=== PATIENT | male | born 1990 | race Caucasian/White ===

== ENCOUNTER 2017-05-04 23:12 | Emergency (ER) | payer SELFPAY ==
[2017-05-04 23:56] VITALS: TEMP 98.5; BMI 34.3
--- NOTE | 2017-05-05 00:12 | PDOC ---
History of Present Illness - History of Present Illness Initial Comments: 05/05/17 01:14 The patient is a 26 year old male, with a significant past medical history of kidney stones and UTI, who presents to the emergency department with hematuria, dysuria, and intermittent suprapubic cramping for two days. He reports the blood is visualized in the stream of the urination and reports bilateral, suprapubic cramping after urination (and only after urination).He states his suprapubic pain is not typical for his prior experiences with kidney stones in the past. He states he usually experiences pain higher with his kidney stones and has not had this pain. He states he is sexually active with men and uses condoms every single time, and he denies prior STIs. He denies chest pain, shortness of breath, headache and dizziness. He denies fever, chills, nausea, vomit, diarrhea and constipation. He denies frequency, urgency. Allergies: NKDA Past surgical history: none reported Social history: occasional tobacco use and alcohol consumption <Irasema Velásquez - Last Filed: 05/05/17 01:14> <Cedric Martino - Last Filed: 05/05/17 01:50> - General Chief Complaint: Hematuria Stated Complaint: BLOOD IN URINE Time Seen by Provider: 05/04/17 23:48 Past History <Irasema Velásquez - Last Filed: 05/05/17 01:14> - Past Medical History Kidney Stones: Yes - Suicide/Smoking/Psychosocial Hx Smoking Status: No Smoking History: Current some day smoker Number of Cigarettes Smoked Daily: 3 Information on smoking cessation initiated: No Hx Alcohol Use: Yes Drug/Substance Use Hx: No Substance Use Type: None <Cedric Martino - Last Filed: 05/05/17 01:50> - Past Medical History Allergies/Adverse Reactions: Allergies Allergy/AdvReac Type Severity Reaction Status Date / Time shellfish derived Allergy Itching Verified 07/31/16 13:53 Home Medications: Ambulatory Orders Nitrofurantoin Macrocrystal [Nitrofurantoin] 100 mg PO BID #10 capsule 05/05/17 Review of Systems - Review of Systems Able to Perform ROS?: Yes Comments:: 05/05/17 01:14 CONSTITUTIONAL: No reported: Fever, Chills, Diaphoresis, Generalized Weakness, Malaise, Loss of Appetite HEENT: No reported: Rhinorrhea, Nasal Congestion, Throat Pain, Throat Swelling, Difficulty Swallowing, Mouth Swelling, Ear Pain, Eye Pain, Visual Changes CARDIOVASCULAR: No reported: Chest Pain, Syncope, Palpitations, Irregular Heart Rate, Lightheadedness, Peripheral Edema RESPIRATORY: No reported: Cough, Shortness of Breath, SOB with Exertion, Orthopnea, Wheezing , Stridor, Hemoptysis GASTROINTESTINAL: (+) intermittent suprapubic pain bilaterally No reported: Abdominal Distension, Nausea, Vomiting, Diarrhea, Constipation, Melena, Hematochezia GENITOURINARY: (+)Dysuria and hematuria No reported: , Frequency, Urgency, Hesitancy, Flank Pain, Genital Pain MUSCULOSKELETAL: No reported: Myalgia, Arthralgia, Joint Swelling, Back pain, Neck Pain SKIN: No reported: Rash, Itching, Pallor HEMEATOLOGIC/IMMUNOLOGIC: No reported: Easy Bleeding, Easy Bruising, Lymphadenopathy, Frequent infections ENDOCRINE: No reported: Unexplained Weight Gain, Unexplained Weight Loss, Heat Intolerance , Cold Intolerance NEUROLOGIC: No reported: Headache, Focal Weakness, Paresthesias, Vertigo, Lightheadedness, Unsteady Gait, Seizure, Mental Status Changes, Incontinence PSYCHIATRIC: No reported: Anxiety, Depression <Irasema Velásquez - Last Filed: 05/05/17 01:14> *Physical Exam - Vital Signs Last Vital Signs Temp Pulse Resp BP Pulse Ox 98.5 F 75 18 153/91 98 05/04/17 23:54 05/04/17 23:54 05/04/17 23:54 05/04/17 23:54 05/04/17 23:54 - Physical Exam Comments: 05/05/17 01:14 GENERAL: The patient is awake, alert, and fully oriented, Nontoxic - in no acute distress. HEAD: Normocephalic, atraumatic. EYES: extraocular movements intact, sclera anicteric, conjunctiva clear. ENT: Normal voice, Moist mucous membranes. NECK: Normal range of motion, supple LUNGS: Breath sounds equal, clear to auscultation bilaterally. No wheezes, no rhonchi, no rales. HEART: Regular rate and rhythm, without murmur, rub or gallop. ABDOMEN: Soft, nontender, normoactive bowel sounds. No guarding, no rebound.No CVA tenderness EXTREMITIES: Normal range of motion, no edema. No clubbing or cyanosis. No cords, erythema, or tenderness. NEUROLOGICAL: No facial assymetry, Normal speech, PSYCH: Normal mood, normal affect. SKIN: Warm, Dry, normal turgor, : uncircumsized, no penile rash or discharge appreciated. <Irasema Velásquez - Last Filed: 05/05/17 01:14> - Vital Signs Last Vital Signs Temp Pulse Resp BP Pulse Ox 98.5 F 75 18 153/91 98 05/04/17 23:54 05/04/17 23:54 05/04/17 23:54 05/04/17 23:54 05/04/17 23:54 <Cedric Martino - Last Filed: 05/05/17 01:50> ED Treatment Course - ADDITIONAL ORDERS Additional order review: Laboratory Results 05/05/17 00:34 Urine Color Ltyellow Urine Appearance Slcloudy Urine pH 6.0 Urine Protein Negative Urine Glucose (UA) Negative Urine Ketones Negative Urine Blood 3+ H Urine Nitrite Negative Urine Bilirubin Negative Urine Urobilinogen 2.0 <Irasema Velásquez - Last Filed: 05/05/17 01:14> Medical Decision Making - Medical Decision Making 05/05/17 00:25 26y M no significant pmhx presents with hematuria and dysuria. The pt denies any fev/erchills. pt is homosexual but uses protection every single time. will r/o UTI, vs utheritis will send ua, gc chlamydia A portion of this note was documented by scribe services under my direction. I have reviewed the details of the note, within reason, and agree with the documentation with the following case summary and management plan written by me 05/05/17 01:47 ua suggestive of UTI will treat with macrobid cultures pending will dc wit hpmd fu return precautions were disucssed I discussed the physical exam findings, ancillary test results and final diagnoses with the patient. I answered all of the patient's questions. The patient was satisfied with the care received and felt comfortable with the discharge plan and treatment plan. The patient will call their primary care physician within 24 hours to arrange follow-up and will return to the Emergency Department with any new, persistent or worsening symptoms. <Cedric Martino - Last Filed: 05/05/17 01:50> *DC/Admit/Observation/Transfer - Attestations Scribe Attestion: 05/05/17 01:15 Documentation prepared by Irasema Velásquez, acting as medical driver for Cedric Martino MD, <Irasema Velásquez - Last Filed: 05/05/17 01:14> - Discharge Dispostion Admit: No <Cedric Martino - Last Filed: 05/05/17 01:50> Diagnosis at time of Disposition: Urinary tract infection Qualifiers: Urinary tract infection type: site unspecified Hematuria presence: with hematuria Qualified Code(s): N39.0 - Urinary tract infection, site not specified ; N39.0 - Urinary tract infection, site not specified; R31.9 - Hematuria, unspecified; R31.9 - Hematuria, unspecified - Discharge Dispostion Disposition: HOME Condition at time of disposition: Improved - Referrals Referrals: Aidan Posada MD [Staff Physician] - - Patient Instructions Printed Discharge Instructions: DI for Urinary Tract Infection (UTI) Additional Instructions: Return to the emergency department immediately with ANY new, persistent or worsening symptoms including any fevers, chills, nausea, vomiting, back pain or other concerns. Your cultures are pending, please call us in 2 days for results. You MUST call and follow up with your doctor in 3-4 days for further evaluation of your symptoms. Results were discussed with you. Please make sure your doctor reviews the results of your emergency evaluation. Print Language: CYMRO
[2017-05-05 00:41] LABS: URINE APPEARANCE SLCLOUDY; URINE BILIRUBIN NEGATIVE (NEGATIVE); URINE BLOOD 3+ (NEGATIVE); URINE COLOR LTYELLOW; URINE GLUCOSE (UA) NEGATIVE (NEGATIVE); URINE KETONE NEGATIVE (NEGATIVE); URINE LEUK ESTERASE NEGATIVE (NEGATIVE); URINE NITRITE NEGATIVE (NEGATIVE); URINE PROTEIN NEGATIVE (NEGATIVE)
[2017-05-05 01:14] LABS: URINE MUCUS RARE; URINE RBC 373 /hpf (0-3); URINE WBC 155 /hpf (3-5)
[2017-05-05 01:58] VITALS: BP 141/94; PULSE 62
== END 2017-05-05 01:58 | disposition home or self-care (01) ==
LOC: JER 23:12
DX: N39.0 Urinary tract infection, site not specified (principal); R31.9 Hematuria, unspecified; Z87.442 Personal history of urinary calculi
CPT/HCPCS: 36415; 81003; 81015; 87086; 87491; 87591; 99282-25

== ENCOUNTER 2017-05-12 19:20 | Emergency (ER) | payer SELFPAY ==
--- NOTE | 2017-05-12 19:28 | PDOC ---
History of Present Illness - General History Source: Patient Exam Limitations: No Limitations - History of Present Illness Initial Comments: 05/12/17 21:34 A portion of this note was documented by scribe services under my direction. I have reviewed the details of the note, within reason, and agree with the documentation. The case summary and management plan written by me. Assessment and plan: This is a 26-year-old male who comes in complaining of left flank pain. Patient has a history of kidney stones in the past. Patient also complaining of blood in his urine. Patient was here approximately 5 days ago diagnosis with UTI given antibiotics which she finished but still had persistent blood in his urine and symptoms. Patient had a workup here that included a CAT scan that was positive for a 4 x 3 mm stone in the distal left ureter without evidence of hydronephrosis or hydroureter. Patient was given prescriptions for Flomax, Percocet, Zofran and Naprosyn. Patient given referral to a urologist. Patient discharged home. <Minerva Shelley I - Last Filed: 05/12/17 21:34> - General History Source: Patient Exam Limitations: No Limitations - History of Present Illness Initial Comments: 05/12/17 19:57 The patient is a 26 year old male, with a significant past medical history of kidney stones, who presents to the ED with blood in the urine for approximately 1 week. The patient reports he began to experience lower abdominal pain about 1 week ago. Patient reports when he went to urinate he experienced dysuria and noted blood in his urine. He endorses urinary frequency, but denies any flank pain, urgency, or urinary incontinence. Patient reports presenting to the ER on 05/05/17, where he was diagnosed with a UTI, and started on antibiotics. As per records from 05/05/17, the urine culture that was sent on the patient, demonstrated no growth of any organisms. Patient reports finishing his abx course, but states his symptoms persists. He reports his pain is now localized to the left lower quadrant and describes it as a sharp sensation. He reports associated nausea, but denies any vomiting, diarrhea, or constipation. He denies any fever, chills, cough, headache, or dizziness. He denies any recent travel or sick contacts. PAST MEDICAL HISTORY: Kidney stones PAST SURGICAL HISTORY: No significant history FAMILY HISTORY: No pertinent history SOCIAL HISTORY: Pt lives with family and is employed. Occasional smoker. Social ETOH. No recreational drug use. MEDICATIONS: Reviewed ALLERGIES: As per nursing notes PCP: Dr. Posada General: No fevers or chills, no weakness, no weight loss HEENT: No change in vision. No sore throat,. No ear pain CardioVascular: No chest pain or shortness of breath Respiratory: No cough, or wheezing. Gastrointestinal: Yes abdominal pain, LLQ pain, nausea. No vomiting, diarrhea or constipation, No rectal bleeding Genitourinary: Yes dysuria, hematuria, frequency. No urgency or urinary incontinence Musculoskeletal: No joint or muscle pain or swelling Neurologic: No headache, vertigo, dizziness or loss of consciousness Psychiatric: No depression Skin: No rashes or easy bruising Endocrine: No increased thirst or abnormal weight change Allergic: No skin or latex allergy All other systems reviewed and normal General: Well-nourished well-developed individual, no acute distress HEENT: Throat: Normal, tonsils normal, no erythema or exudate Neck: Supple, no meningeal signs, no lymphadenopathy Eyes: Pupils equal reactive and round, extraocular motion intact Abdomen: Tenderness to the LLQ, but no suprapubic tenderness. Soft, nondistended , normal bowel sounds Back/Flank: No CVA tenderness. Tenderness to palpation on the left flank Extremities: Warm, dry, no cyanosis, clubbing, or edema Skin: No rashes Neuro: Alert and oriented x3, nonfocal exam, grossly intact, normal gait Psych: Normal mood and affect <Mili Lares - Last Filed: 05/12/17 21:48> - General Chief Complaint: Hematuria Stated Complaint: BLOOD IN URINE, LEFT FLANK PAIN Time Seen by Provider: 05/12/17 19:28 Past History - Past Medical History Kidney Stones: Yes - Suicide/Smoking/Psychosocial Hx Smoking Status: No Smoking History: Current some day smoker Number of Cigarettes Smoked Daily: 3 Hx Alcohol Use: Yes Drug/Substance Use Hx: No Substance Use Type: None <Minerva Shelley I - Last Filed: 05/12/17 21:34> <Mili Lares - Last Filed: 05/12/17 21:48> - Past Medical History Allergies/Adverse Reactions: Allergies Allergy/AdvReac Type Severity Reaction Status Date / Time shellfish derived Allergy Itching Verified 07/31/16 13:53 Home Medications: Ambulatory Orders Nitrofurantoin Macrocrystal [Nitrofurantoin] 100 mg PO BID #10 capsule 05/05/17 Naproxen [Naprosyn -] 250 mg PO BID PRN #30 tablet 05/12/17 Ondansetron [Zofran Odt -] 4 mg SL TID PRN #12 od.tablet 05/12/17 Oxycodone HCl/Acetaminophen [Percocet 5-325 mg Tablet] 1 - 2 tab PO Q4H PRN #12 tablet MDD 8 05/12/17 Tamsulosin HCl [Flomax] 0.4 mg PO DAILY #30 cap.er.24h 05/12/17 *Physical Exam - Vital Signs Last Vital Signs Temp Pulse Resp BP Pulse Ox 98.7 F 62 15 164/90 97 05/12/17 19:26 05/12/17 19:26 05/12/17 19:26 05/12/17 19:26 05/12/17 19:26 <Mili Lares - Last Filed: 05/12/17 21:48> ED Treatment Course - LABORATORY CBC & Chemistry Diagram: 05/12/17 19:55 05/12/17 19:55 <Minerva Shelley I - Last Filed: 05/12/17 21:34> - LABORATORY CBC & Chemistry Diagram: 05/12/17 19:55 05/12/17 19:55 - ADDITIONAL ORDERS Additional order review: Laboratory Results 05/12/17 19:35 Urine Color Yellow Urine Appearance Clear Urine pH 6.0 Ur Specific [place] 1.025 Urine Protein Trace Urine Glucose (UA) Negative Urine Ketones Negative Urine Blood Trace-intact H Urine Nitrite Negative Urine Bilirubin Negative Urine Urobilinogen 2.0 Ur Leukocyte Esterase Negative - RADIOLOGY Radiology Studies Ordered: 05/12/17 21:47 EXAM: CT Abdomen and Pelvis INTERPRETED BY: Dr. Emery REVIEWED BY: Dr. Gamino IMPRESSION: A couple of tiny nonobstructing right renal stones with the largest measuring 5 mm. A few nonobstructing left renal stones with the largest again seen in its lower pole measuring approximately 8 mm. 4 x 3 mm stone again seen in the distal left ureter on axial image #115 without evidence of left renal hydronephrosis or proximal hydroureter. No urinary bladder stone is identified. A few scattered diverticula in the colon without gross evidence of acute diverticulitis. <Mili Lares - Last Filed: 05/12/17 21:48> *DC/Admit/Observation/Transfer - Discharge Dispostion Admit: No <Minerva Shelley I - Last Filed: 05/12/17 21:34> - Attestations Scribe Attestion: 05/12/17 19:57 Documentation prepared by Mili Lares, acting as medical certification specialist for Minerva Shelley MD. <Jaci Laresmaite - Last Filed: 05/12/17 21:48> Diagnosis at time of Disposition: Renal colic on left side - Discharge Dispostion Condition at time of disposition: Good - Prescriptions Prescriptions: Tamsulosin HCl [Flomax] 0.4 mg PO DAILY #30 cap.er.24h Naproxen [Naprosyn -] 250 mg PO BID PRN #30 tablet PRN Reason: Pain Oxycodone HCl/Acetaminophen [Percocet 5-325 mg Tablet] 1 - 2 tab PO Q4H PRN #12 tablet MDD 8 PRN Reason: Pain Ondansetron [Zofran Odt -] 4 mg SL TID PRN #12 od.tablet PRN Reason: Nausea - Patient Instructions Printed Discharge Instructions: DI for Kidney Stones Additional Instructions: For pain you can take Naprosyn 1 tablet as often as 3 times a day if needed taken with food don't take on an empty stomach. If he needs something stronger you can take Percocet one tablet as often as every 4-6 hours if needed the Percocet will make you drowsy so if you take it do not drive or do anything that requires your concentration. For nausea take Zofran 1 tablet as often as 3 times a day. 4 to keep your urine flowing take Flomax 1 tablet a day. Follow-up with your urologist call him in the morning to make an appointment for this week if possible Return to the emergency department immediately with ANY new, persistent or worsening symptoms. Continue any medications as previously prescribed by your physician. You should follow up with your primary doctor as soon as possible regarding today's emergency department visit. . Please make sure your doctor reviews the results of your emergency evaluation. Thank you for coming to the Emergency Department today for your care. It was a pleasure to see you today. Please note that your evaluation is INCOMPLETE until you follow-up with your doctor. .
[2017-05-12] MEDS ORDERED: KETOROLAC TROMETHAMINE 30 MG/1 ML VIAL IVPUSH ONE (19:32)
[2017-05-12] MEDS ORDERED: SODIUM CHLORIDE 1,000 ML IV ONE (19:32)
[2017-05-12 19:40] VITALS: BP 164/90; PULSE 62; TEMP 98.7; BMI 34.2
[2017-05-12 19:52] LABS: URINE APPEARANCE Clear; URINE BILIRUBIN Negative (NEGATIVE); URINE GLUCOSE (UA) Negative (NEGATIVE); URINE KETONE Negative (NEGATIVE); URINE LEUK ESTERASE Negative (NEGATIVE); URINE NITRITE Negative (NEGATIVE); URINE PROTEIN Trace (NEGATIVE)
[2017-05-12 19:53] LABS: URINE BLOOD Trace-intact (NEGATIVE)
[2017-05-12 19:54] LABS: URINE COLOR YELLOW
[2017-05-12 20:12] LABS: URINE BACTERIA FEW /hpf (NEGATIVE); URINE WBC 0-2 (3-5)
[2017-05-12 20:13] LABS: BASOPHIL 4.3 % (0-2.0); EOSINOPHIL 1.5 % (0-4.5); MCH 30.7 pg (25.7-33.7); MCHC 34.8 g/dl (32.0-35.9); MEAN CELL VOLUME 88.2 fl (80-96); MEAN PLT VOLUME 8.5 fl (7.5-11.1); NEUTROPHILS 34.5 % (42.8-82.8); PLATELET COUNT 302 K/MM3 (134-434); RDW 11.8 % (11.9-15.9); WHITE BLOOD COUNT 8.9 K/mm3 (4.0-10.8)
[2017-05-12 20:21] LABS: ALBUMIN 4.4 g/dl (3.5-5.0); ALK PHOS 82 U/L (32-92); ANION GAP 6 (8-16); BILIRUBIN,TOTAL 0.7 mg/dl (0.2-1.0); CALCIUM 9.8 mg/dl (8.4-10.2); CO2 25 mmol/L (22-28); CREATININE 0.7 mg/dl (0.6-1.3); GLUCOSE,RANDOM 85 mg/dl (74-106); SGOT/AST 32 U/L (10-42); SGPT/ALT 50 U/L (10-40); TOT PROT 7.8 g/dl (6.4-8.3)
== END 2017-05-12 21:58 | disposition home or self-care (01) ==
LOC: FER 19:20
PROC: 3E0337Z Introduction of Electrolytic and Water Balance Substance into Peripheral Vein, Percutaneous Approach (ICD-10-PCS; principal; 2017-05-12)
DX: N23 Unspecified renal colic (principal); F17.210 Nicotine dependence, cigarettes, uncomplicated
CPT/HCPCS: 36415; 74176-TC; 80053; 81003; 81015; 85025; 99282-25

== ENCOUNTER 2017-11-24 19:00 | Emergency (ER) | payer OTHER ==
[2017-11-24 19:48] LABS: URINE APPEARANCE Clear; URINE BILIRUBIN 1+ (NEGATIVE); URINE GLUCOSE (UA) Negative (NEGATIVE); URINE KETONE Negative (NEGATIVE); URINE LEUK ESTERASE Negative (NEGATIVE); URINE NITRITE Negative (NEGATIVE); URINE UROBILINOGEN 0.2 (0.2-1.0)
[2017-11-24 19:50] LABS: URINE BLOOD 3+ (NEGATIVE); URINE COLOR YELLOW; URINE PROTEIN 1+ (NEGATIVE)
[2017-11-24 19:58] VITALS: BP 133/87; PULSE 98; TEMP 98.8; BMI 31.8
--- NOTE | 2017-11-24 20:09 | PDOC ---
History of Present Illness - General History Source: Patient Exam Limitations: No Limitations - History of Present Illness Initial Comments: 11/24/17 21:10 The patient is a 27 year old male with a significant PMH of kidney stones(last year) and UTI who presents to the emergency department with a sore throat and hematuria. The patient states that his sore throat symptoms began 2 days and, his hematuria began this morning. The patient reports that he recently had sick contact with his nephew who lives with him and was diagnosed with strep throat 2 days ago. He reports that he has had some painful swallowing. The patient reports that his hematuria has been intermittent since 3am this morning. He reports associated abdominal pain for a few hours. He also reports associated diarrhea and mild dysuria. He denies taking any pain relief medication but reports that he has no pain currently. The patient denies any urinary frequency or urgency. The patient denies chest pain, shortness of breath , headache and dizziness.Denies fever, chills,vomiting, and constipation. The patient denies any other complaints. <Cody Lay - Last Filed: 11/24/17 22:09> <Alannah Preciado - Last Filed: 11/26/17 23:59> - General Chief Complaint: Hematuria Stated Complaint: SORE THROAT & BLOOD IN URINE Time Seen by Provider: 11/24/17 19:38 Past History <Cody Lay - Last Filed: 11/24/17 22:09> - Past Medical History COPD: No Kidney Stones: Yes - Immunization History Immunization Up to Date: Yes - Suicide/Smoking/Psychosocial Hx Smoking Status: No Smoking History: Former smoker Have you smoked in the past 12 months: Yes Number of Cigarettes Smoked Daily: 3 If you are a former smoker, when did you quit?: 2017 Information on smoking cessation initiated: No 'Breaking Loose' booklet given: 05/04/17 Hx Alcohol Use: Yes (ONLY OCCASIONALLY) Drug/Substance Use Hx: No Substance Use Type: None <Alannah Preciado - Last Filed: 11/26/17 23:59> - Past Medical History Allergies/Adverse Reactions: Allergies Allergy/AdvReac Type Severity Reaction Status Date / Time shellfish derived Allergy Itching Verified 07/31/16 13:53 Home Medications: Ambulatory Orders NK [No Known Home Medication] 11/24/17 Review of Systems - Review of Systems Able to Perform ROS?: Yes Comments:: 11/24/17 21:10 GENERAL/CONSTITUTIONAL: No fever or chills. No weakness. HEAD, EYES, EARS, NOSE AND THROAT: (+)sore throat. No change in vision. No ear pain or discharge. CARDIOVASCULAR: No chest pain or shortness of breath. RESPIRATORY: No cough, wheezing, or hemoptysis. GASTROINTESTINAL: No nausea, vomiting, diarrhea or constipation. GENITOURINARY: (+)dysuria, hematuria. No frequency, or change in urination. MUSCULOSKELETAL: No joint or muscle swelling or pain. No neck or back pain. SKIN: No rash NEUROLOGIC: No headache, vertigo, loss of consciousness, or change in strength/ sensation. ENDOCRINE: No increased thirst. No abnormal weight change. HEMATOLOGIC/LYMPHATIC: No anemia, easy bleeding, or history of blood clots. ALLERGIC/IMMUNOLOGIC: No hives or skin allergy. <Cody Lay - Last Filed: 11/24/17 22:09> *Physical Exam - Vital Signs Last Vital Signs Temp Pulse Resp BP Pulse Ox 98.8 F 98 H 16 133/87 98 11/24/17 19:33 11/24/17 19:33 11/24/17 19:33 11/24/17 19:33 11/24/17 19:33 - Physical Exam Comments: 11/24/17 21:12 GENERAL: Awake, alert, and fully oriented, in no acute distress HEAD: No signs of trauma EYES: PERRLA, EOMI, sclera anicteric, conjunctiva clear ENT: (+) 1+ moderate erythema of pharynx. 1+ bilateral tonsillar edema without exudates. Auricles normal inspection, hearing grossly normal, nares patent, oropharynx clear without exudates. Moist mucosa. No lymphadenopathy. NECK: Normal ROM, supple, no lymphadenopathy, JVD, or masses LUNGS: Breath sounds equal, clear to auscultation bilaterally. No wheezes, and no crackles HEART: Regular rate and rhythm, normal S1 and S2, no murmurs, rubs or gallops ABDOMEN: Soft, nontender, normoactive bowel sounds. No guarding, no rebound. No masses EXTREMITIES: Normal range of motion, no edema. No clubbing or cyanosis. No cords, erythema, or tenderness NEUROLOGICAL: Cranial nerves II through XII grossly intact. Normal speech, normal gait SKIN: Warm, Dry, normal turgor, no rashes or lesions noted. <Cody Lay - Last Filed: 11/24/17 22:09> - Vital Signs Last Vital Signs Temp Pulse Resp BP Pulse Ox 98.8 F 98 H 16 133/87 98 11/24/17 19:33 11/24/17 19:33 11/24/17 19:33 11/24/17 19:33 11/24/17 19:33 <Alannah Preciado - Last Filed: 11/26/17 23:59> ED Treatment Course - ADDITIONAL ORDERS Additional order review: Laboratory Results 11/24/17 19:40 Urine Color Yellow Urine Appearance Clear Urine pH 5.0 Ur Specific [place] 1.025 Urine Protein 1+ H Urine Glucose (UA) Negative Urine Ketones Negative Urine Blood 3+ H Urine Nitrite Negative Urine Bilirubin 1+ H Urine Urobilinogen 0.2 Ur Leukocyte Esterase Negative Urine RBC >100 Urine WBC 10-20 Urine Bacteria Few 11/24/17 20:16 Group A Strep Rapid Antigen - Final Throat NEGATIVE FOR THE ANTIGEN OF BETA HEMOLYTIC STREP GROUP A <Cody Lay - Last Filed: 11/24/17 22:09> - ADDITIONAL ORDERS Additional order review: Laboratory Results 11/24/17 19:40 Urine Color Yellow Urine Appearance Clear Urine pH 5.0 Ur Specific [place] 1.025 Urine Protein 1+ H Urine Glucose (UA) Negative Urine Ketones Negative Urine Blood 3+ H Urine Nitrite Negative Urine Bilirubin 1+ H Urine Urobilinogen 0.2 Ur Leukocyte Esterase Negative <Alannah Preciado - Last Filed: 11/26/17 23:59> Progress Note - Progress Note Progress Note: Documentation has been prepared under my direction and personally reviewed by me in its entirety. I attest that this documented accurately reflects all work, treatment, procedures and medical decision making performed by me. <Alannah Preciado - Last Filed: 11/26/17 23:59> Medical Decision Making - Medical Decision Making As noted above, this 27-year-old man with a history of kidney stones presents with 2 complaints: Recent exposure to case of strep pharyngitis with current sore throat and left lower quadrant/left pelvic pain. The patient has had intermittent hematuria today without dysuria or urinary frequency. Exam as noted. Quick strep negative. Because of the patient's history of kidney stones and microscopic hematuria, renal stone protocol CT performed. This revealed small ( 1-2 mm) distal ureter/UVJ stone without significant hydroureter or hydronephrosis. Patient will be discharged with instructions to drink plenty of water. He should follow-up with the urologist (since he has not had any recent neurology follow-up). He should return to the emergency room if he has persistent, severe flank/lower abdominal/pelvic pain or if persisting gross hematuria/ dysuria occurs. Also, the patient has progressive severe throat pain, he should return to the emergency room. <Alannah Preciado - Last Filed: 11/26/17 23:59> *DC/Admit/Observation/Transfer - Attestations Scribe Attestion: 11/24/17 21:13 Documentation prepared by Cody Lay, acting as medical reviewer for Alannah Preciado MD. <Cody Lay - Last Filed: 11/24/17 22:09> <Alannah Preciado - Last Filed: 11/26/17 23:59> Diagnosis at time of Disposition: Renal colic Hematuria Qualifiers: Hematuria type: unspecified type Qualified Code(s): R31.9 - Hematuria, unspecified Pharyngitis Qualifiers: Pharyngitis/tonsillitis etiology: unspecified etiology Qualified Code(s): J02.9 - Acute pharyngitis, unspecified - Discharge Dispostion Disposition: HOME Condition at time of disposition: Stable - Referrals Referrals: Thor Steven MD [Staff Physician] - - Patient Instructions Printed Discharge Instructions: DI for Viral Pharyngitis, DI for Hematuria Additional Instructions: drink plenty of water Return if you have worsening pain, fever or persistent blood in urine Follow-up with urologist (Dr. Steven) within 3-4 days
[2017-11-24 20:47] LABS: URINE BACTERIA FEW /hpf (NEGATIVE); URINE RBC >100 /hpf (0-3)
--- NOTE | 2017-11-29 09:14 | PDOC ---
*Physical Exam - Vital Signs Last Vital Signs Temp Pulse Resp BP Pulse Ox 98.8 F 98 H 16 133/87 98 11/24/17 19:33 11/24/17 19:33 11/24/17 19:33 11/24/17 19:33 11/24/17 19:33 ED Treatment Course - ADDITIONAL ORDERS Additional order review: 11/24/17 20:16 Throat Culture - Final Throat Beta Hem Streptococcus Group C Group A Strep Rapid Antigen - Final NEGATIVE FOR THE ANTIGEN OF BETA HEMOLYTIC STREP GROUP A 11/24/17 22:44 Urine Culture - Final Urine - Urine Clean Catch NO GROWTH OBTAINED Medical Decision Making - Medical Decision Making 11/29/17 09:13 Received a positive throat culture: beta hem streptococcus group C. 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 I had left a voicemail requesting the patient to call back so that I could prescribe antibiotics. *DC/Admit/Observation/Transfer Diagnosis at time of Disposition: Renal colic Hematuria Qualifiers: Hematuria type: unspecified type Qualified Code(s): R31.9 - Hematuria, unspecified Pharyngitis Qualifiers: Pharyngitis/tonsillitis etiology: unspecified etiology Qualified Code(s): J02.9 - Acute pharyngitis, unspecified - Discharge Dispostion Disposition: HOME Condition at time of disposition: Stable - Referrals Referrals: Thor Steven MD [Staff Physician] - - Patient Instructions Printed Discharge Instructions: DI for Viral Pharyngitis, DI for Hematuria Additional Instructions: drink plenty of water Return if you have worsening pain, fever or persistent blood in urine Follow-up with urologist (Dr. Steven) within 3-4 days - Post Discharge Activity
--- NOTE | 2017-11-29 10:33 | PDOC ---
*Physical Exam - Vital Signs Last Vital Signs Temp Pulse Resp BP Pulse Ox 98.8 F 98 H 16 133/87 98 11/24/17 19:33 11/24/17 19:33 11/24/17 19:33 11/24/17 19:33 11/24/17 19:33 ED Treatment Course - ADDITIONAL ORDERS Additional order review: 11/24/17 20:16 Throat Culture - Final Throat Beta Hem Streptococcus Group C Group A Strep Rapid Antigen - Final NEGATIVE FOR THE ANTIGEN OF BETA HEMOLYTIC STREP GROUP A 11/24/17 22:44 Urine Culture - Final Urine - Urine Clean Catch NO GROWTH OBTAINED Medical Decision Making - Medical Decision Making 11/29/17 10:32 Received a phone call back from the patient. The patient still with sore throat. I explained the culture results to him. I wrote a prescription of amoxicillin. Pt reports that he will take it. *DC/Admit/Observation/Transfer Diagnosis at time of Disposition: Renal colic Hematuria Qualifiers: Hematuria type: unspecified type Qualified Code(s): R31.9 - Hematuria, unspecified Pharyngitis Qualifiers: Pharyngitis/tonsillitis etiology: unspecified etiology Qualified Code(s): J02.9 - Acute pharyngitis, unspecified - Discharge Dispostion Disposition: HOME Condition at time of disposition: Stable - Prescriptions Prescriptions: Amoxicillin - [Amoxicillin 500mg Capsule -] 500 mg PO TID #21 capsule - Referrals Referrals: Thor Steven MD [Staff Physician] - - Patient Instructions Printed Discharge Instructions: DI for Viral Pharyngitis, DI for Hematuria Additional Instructions: drink plenty of water Return if you have worsening pain, fever or persistent blood in urine Follow-up with urologist (Dr. Steven) within 3-4 days - Post Discharge Activity
== END 2017-11-24 23:09 | disposition home or self-care (01) ==
LOC: FER 19:00
DX: N20.0 Calculus of kidney (principal); R31.9 Hematuria, unspecified; J02.9 Acute pharyngitis, unspecified
CPT/HCPCS: 74176; 81003; 81015; 87070; 87077; 87086; 87430; 99282-25

== ENCOUNTER 2018-11-14 17:29 | Emergency (ER) | payer OTHER ==
[2018-11-14 17:39] VITALS: BP 115/71; PULSE 69; TEMP 98.4; BMI 33.7
--- NOTE | 2018-11-14 17:54 | PDOC ---
History of Present Illness - General Chief Complaint: Pain, Acute Stated Complaint: RT ARM PAIN Time Seen by Provider: 11/14/18 17:44 - History of Present Illness Initial Comments: 11/14/18 17:51 28-year-old male without comorbidities presents for evaluation of right wrist pain 5 days without any precipitating traumatic event. He denies systemic symptoms. Past History - Past Medical History Allergies/Adverse Reactions: Allergies Allergy/AdvReac Type Severity Reaction Status Date / Time shellfish derived Allergy Itching Verified 07/31/16 13:53 Home Medications: Ambulatory Orders NK [No Known Home Medication] 11/14/18 COPD: No Kidney Stones: Yes - Immunization History Immunization Up to Date: Yes - Suicide/Smoking/Psychosocial Hx Smoking Status: No Smoking History: Unknown if ever smoked Have you smoked in the past 12 months: No Number of Cigarettes Smoked Daily: 3 If you are a former smoker, when did you quit?: 2017 Information on smoking cessation initiated: No 'Breaking Loose' booklet given: 05/04/17 Hx Alcohol Use: No Drug/Substance Use Hx: No Substance Use Type: None Review of Systems - Review of Systems Constitutional: Yes: Fever Musculoskeletal: Yes: See HPI, Joint Pain *Physical Exam - Vital Signs Last Vital Signs Temp Pulse Resp BP Pulse Ox 98.4 F 69 18 115/71 97 11/14/18 17:35 11/14/18 17:35 11/14/18 17:35 11/14/18 17:35 11/14/18 17:35 - Physical Exam Comments: 11/14/18 17:51 Cervical spine skin color and temperature are normal. Range of motion is full and nonpainful. There is no tenderness. 5 out of 5 strength in bilateral upper extremities without gross sensorimotor deficits. Spurling maneuver negative bilaterally. Right elbow skin color and temperature are normal full range of motion no instability no tenderness. There is mild tenderness about the dorsum of the carpus. Pain is slightly increased with flexion of the wrist about the dorsum of the carpus as well as resisted wrist extension. No gross sensorimotor deficits. Neurovascularly intact. Medical Decision Making - Medical Decision Making 11/14/18 17:52 Extensor tendinitis right wrist. Splint anti-inflammatories follow-up with orthopedic. *DC/Admit/Observation/Transfer Diagnosis at time of Disposition: Tendonitis of wrist, right - Discharge Dispostion Disposition: HOME Condition at time of disposition: Stable Decision to Admit order: No - Referrals Referrals: Kishor Bhagat DO [Staff Physician] - - Patient Instructions Printed Discharge Instructions: Tendinopathy Additional Instructions: Please wear the wrist splint for comfort. Tylenol and Motrin as directed for pain. Return to the emergency room for worsening symptoms. Follow-up with orthopedic surgery in 1-2 days for further evaluation and treatment options. - Post Discharge Activity
== END 2018-11-14 17:55 | disposition home or self-care (01) ==
LOC: JERFT 17:29
PROC: 2W3CX1Z Immobilization of Right Lower Arm using Splint (ICD-10-PCS; principal; 2018-11-14)
DX: M77.8 Other enthesopathies, not elsewhere classified (principal)
CPT/HCPCS: 29125; 99281-25

== ENCOUNTER 2019-04-20 01:04 | Emergency (ER) | payer OTHER | END 2019-04-20 03:38 | disposition home or self-care (01) | LOC: FER 01:04 ==

== ENCOUNTER 2019-08-07 18:17 | Emergency (ER) | payer OTHER ==
[2019-08-07 18:28] VITALS: BP 156/103; PULSE 73; TEMP 98.3; BMI 36.8
[2019-08-07 19:13] LABS: EPITHELIAL CELLS RARE /hpf
--- NOTE | 2019-08-07 23:32 | PDOC ---
Documentation entered by Keren Sanchez SCRIBE, acting as scribe for Alannah Preciado MD. Alannah Preciado MD: This documentation has been prepared by the Laura link Adrianna, SCRIBE, under my direction and personally reviewed by me in its entirety. I confirm that the documentation accurately reflects all work, treatment, procedures, and medical decision making performed by me. History of Present Illness - General Chief Complaint: Hematuria Stated Complaint: HEMATURIA FOR 3 DAYS AFTER PASSING A KIDNEY STONE Time Seen by Provider: 08/07/19 19:10 - History of Present Illness Initial Comments: The patient is a 29 year old male, with a significant PMH of kidney stones, who presents to the ED for evaluation of hematuria for 3 days. Patient notes he gets kidney stones every 7 months, and notes last week he developed bilateral flank pain that was sales solutions representative of his prior kidney stones. 3 days ago, he notes he felt the stone traveling down, and endorses associated hematuria ( which is typical for him when he passes stones). He notes he passed the stone mid-day yesterday while urinating. After passing stones in the past, he typically no longer had blood in his urine. His urine had bright-red blood in it yesterday, which has transitioned into pink-tinged urine today. Patient endorses some intermittent flank pain up until yesterday, but denies anyg today. He presents to the ED as the hematuria has not stopped although the stone has been passed. He denies any penile discharge, fever, chills, nausea, vomit, or diarrhea. He is not currently sexually active. Allergies: NKA, NKDA Surgical history: None reported Social history: Lives with family. Social EtOH use. No tobacco or illicit drug use. Past History - Past Medical History Allergies/Adverse Reactions: Allergies Allergy/AdvReac Type Severity Reaction Status Date / Time No Known Allergies Allergy Verified 08/07/19 18:19 Home Medications: Ambulatory Orders NK [No Known Home Medication] 08/07/19 COPD: No Kidney Stones: Yes - Immunization History Immunization Up to Date: Yes - Psycho Social/Smoking Cessation Hx Smoking Status: No Smoking History: Never smoked Have you smoked in the past 12 months: No Number of Cigarettes Smoked Daily: 3 If you are a former smoker, when did you quit?: 2017 Information on smoking cessation initiated: No 'Breaking Loose' booklet given: 05/04/17 Hx Alcohol Use: Yes (SOCIAL) Drug/Substance Use Hx: No Substance Use Type: None Review of Systems - Review of Systems Comments:: GENERAL/CONSTITUTIONAL: No fever or chills. No weakness. HEAD, EYES, EARS, NOSE AND THROAT: No change in vision. No ear pain or discharge. No sore throat. CARDIOVASCULAR: No chest pain or shortness of breath. RESPIRATORY: No cough, wheezing, or hemoptysis. GASTROINTESTINAL: No nausea, vomiting, diarrhea or constipation. GENITOURINARY: +Hematuria. +Passed kidney stone. No dysuria, frequency, or change in urination. MUSCULOSKELETAL: +Intermittent bilateral flank pain.. No joint or muscle swelling or pain. No neck or back pain. SKIN: No rash NEUROLOGIC: No headache, vertigo, loss of consciousness, or change in strength/ sensation. ENDOCRINE: No increased thirst. No abnormal weight change. HEMATOLOGIC/LYMPHATIC: No anemia, easy bleeding, or history of blood clots. ALLERGIC/IMMUNOLOGIC: No hives or skin allergy. *Physical Exam - Vital Signs Last Vital Signs Temp Pulse Resp BP Pulse Ox 98.3 F 73 16 156/103 H 98 08/07/19 18:18 08/07/19 18:18 08/07/19 18:18 08/07/19 18:18 08/07/19 18:18 - Physical Exam GENERAL: Awake, alert, and fully oriented, in no acute distress HEAD: No signs of trauma EYES: PERRLA, EOMI, sclera anicteric, conjunctiva clear ENT: Auricles normal inspection, hearing grossly normal, nares patent. Moist mucosa NECK: Normal ROM, supple, no lymphadenopathy, JVD, or masses LUNGS: Breath sounds equal, clear to auscultation bilaterally. No wheezes, and no crackles HEART: Regular rate and rhythm, normal S1 and S2, no murmurs, rubs or gallops ABDOMEN: Soft, nontender, normoactive bowel sounds. No guarding, no rebound. No masses EXTREMITIES: Normal range of motion, no edema. No erythema or tenderness. DP/PT pulses 2+ and symmetric. Warm and well perfused. NEUROLOGICAL: Moves all extremities. Normal speech, normal gait SKIN: Warm, Dry, normal turgor, no rashes or lesions noted. ED Treatment Course - ADDITIONAL ORDERS Additional order review: Laboratory Results 08/07/19 18:52 Urine Color Yellow Urine Appearance Slightly Urine pH 7.0 Urine Protein Negative Urine Glucose (UA) Negative Urine Ketones Negative Urine Blood 3+ H Urine Nitrite Negative Urine Bilirubin Negative Urine Urobilinogen 1.0 Ur Leukocyte Esterase Negative Medical Decision Making - Medical Decision Making This 29-year-old man with a history of recurrent kidney stones presents with persistent hematuria after passage of kidney stone yesterday. Patient is concerned because his pain has resolved but he still has noticeable blood in his urine. He admits that while the urine was red yesterday, it has improved to being light pink today. He denies any symptoms of urinary tract infection. Exam as noted Urinalysis shows 8200 RBCs per high-power field; otherwise, urinalysis is normal without evidence of significant WBCs or bacteria. Urine sent for culture and sensitivity. It was explained to the patient that, because he has no recurrent pain, retained ureteral stone is unlikely. Also, without white blood cells or bacteria in his urine, there is less likelihood that urinary tract infection is present. Urine culture and sensitivity will test if there is a UTI present. Since the red coloration is decreasing in the last 24 hours, it is possible that the hematuria is present secondary to physical irritation of the passage of the stone and will likely continue to clear. Patient is encouraged to drink plenty fluids. He should return if he has recurrent pain or develops dysuria/ urinary frequency/fever. Meanwhile, the patient has not seen a urologist in over 10 years. He was given referral information for the urologist on-call , with whom he should arrange follow-up within the next week Discharge - Discharge Information Problems reviewed: Yes Clinical Impression/Diagnosis: Hematuria Qualifiers: Hematuria type: unspecified type Qualified Code(s): R31.9 - Hematuria, unspecified Condition: Stable Disposition: HOME - Follow up/Referral Referrals: Chirag Foley MD [Staff Physician] - - Patient Discharge Instructions Patient Printed Discharge Instructions: Blood in Urine Additional Instructions: drink plenty of water return to ER if you develop pain/fever/frequent urination we will contact you if culture is positive for infection followup with urologist(Dr Foley) within 3-4 days - Post Discharge Activity
== END 2019-08-07 19:42 | disposition home or self-care (01) ==
LOC: FER 18:17
DX: R31.9 Hematuria, unspecified (principal); Z87.442 Personal history of urinary calculi
CPT/HCPCS: 81003; 81015; 87086; 99282-25

== ENCOUNTER 2019-08-27 05:44 | Emergency (ER) | payer OTHER ==
--- NOTE | 2019-08-27 05:56 | PDOC ---
History of Present Illness - General Chief Complaint: Urinary Problem Stated Complaint: BLOOD IN URINE, PAIN Time Seen by Provider: 08/27/19 05:55 History Source: Patient Exam Limitations: No Limitations - History of Present Illness Initial Comments: Melvin Davila is a 29 yo obese mail w a hx of HTN and kidney stones who presents to the ER with pain while urinating after he recently passed a kidney stone. He states he passed a stone 3 days ago and he saw the stone come through his penis. Ever since the stone left it has hurt him very much to urinate and he thinks something inside his urethra might have torn. He states he has tried scheduling a Urologist appointment with his urologist Dr. Ezio Enrique but has thus far been unsuccessful at scheduling an appointment. He denies frequency, urgency, or hematuria. Denies fevers, chills, infections. Denies chest, abdomen, or back pain. Urologist: Dr. Enrique PSH: None reported Social Hx: Recreational drinker Allergies: NKA, NKDA Past History - Past Medical History Allergies/Adverse Reactions: Allergies Allergy/AdvReac Type Severity Reaction Status Date / Time No Known Allergies Allergy Verified 08/27/19 06:02 Home Medications: Ambulatory Orders NK [No Known Home Medication] 08/07/19 COPD: No Kidney Stones: Yes - Immunization History Immunization Up to Date: Yes - Psycho Social/Smoking Cessation Hx Smoking Status: No Smoking History: Never smoked Have you smoked in the past 12 months: No Number of Cigarettes Smoked Daily: 3 If you are a former smoker, when did you quit?: 2016 'Breaking Loose' booklet given: 05/04/17 Hx Alcohol Use: Yes (SOCIAL) Drug/Substance Use Hx: No Substance Use Type: None Review of Systems - Review of Systems Able to Perform ROS?: Yes Comments:: CONSTITUTIONAL: Absent: fever, no chills, no fatigue EYES: Absent: visual changes ENT: Absent: ear pain, no sore throat CARDIOVASCULAR: Absent: chest pain, no palpitations RESPIRATORY: Absent: cough, no SOB GI: Absent: abdominal pain, no nausea, no vomiting, no constipation, no diarrhea GENITOURINARY: Present: Dysuria Absent: no frequency, no hematuria MUSKULOSKELETAL: Absent: back pain, no arthralgia, no myalgia SKIN: Absent: rash NEURO: Absent: headache *Physical Exam - Physical Exam GENERAL: Well-appearing, well-nourished. No apparent distress. HEENT: Normocephalic, atraumatic. PERRL, EOM intact. CARDIOVASCULAR: Normal S1, S2. Regular rate and rhythm. PULMONARY: No evidence of respiratory distress. Lungs clear to auscultation bilaterally. No wheezing, rales or rhonchi. ABDOMEN: Soft, non-distended, non-tender. EXTREMITIES: Normal ROM in all four extremities. No gross deformities. SKIN: Warm, dry. No rash NEUROLOGICAL: No focal neurological deficits. Medical Decision Making - Medical Decision Making Melvin Davila is a 29 yo obese mail w a hx of HTN and kidney stones who presents to the ER with pain while urinating after he recently passed a kidney stone. He states he passed a stone 3 days ago and he saw the stone come through his penis. Ever since the stone left it has hurt him very much to urinate and he thinks something inside his urethra might have torn. He states he has tried scheduling a Urologist appointment with his urologist Dr. Ezio Enrique but has thus far been unsuccessful at scheduling an appointment. Vital Signs Temp Pulse Resp BP Pulse Ox 97.9 F 68 17 161/109 H 98 08/27/19 05:56 08/27/19 05:56 08/27/19 05:56 08/27/19 05:56 08/27/19 05:56 - Hypertensive DDx IBNLT: Urethral tear, renal colic, infected stone, UTI Plan: Ua/UC, uroloigist referral Urine: 3+ blood Re-assessment: Patient feels better after motrin Disposition: Home with Uro FU - Patient counselled on importance of scheduling an appointment with a PCP regarding his elevated blood pressure. patient counselled on danger of not taking care of his blood pressure right away. Patient states he will schedule an appointment with a PCP today. Discharge - Discharge Information Problems reviewed: Yes Clinical Impression/Diagnosis: Dysuria Hypertension Qualifiers: Hypertension type: unspecified Qualified Code(s): I10 - Essential (primary) hypertension Condition: Stable Disposition: HOME - Admission No - Follow up/Referral Referrals: Mc Jeter MD [Staff Physician] - Qamar Borjas MD [Staff Physician] - Ezio Enrique MD [Staff Physician] - [facility] [place] [Provider Group] - Patient Discharge Instructions Patient Printed Discharge Instructions: Recommendations to Help Prevent High Blood Pressure, High Blood Pressure Linked to Inflammation, High Blood Pressure (Hypertension) (Alternative Therapy), DI for Dysuria -- Child, DI for Dysuria - - Adult Additional Instructions: You came into the ER with burning when you pee. We believe you might have a urethral tear. We are giving you the numbers of 3 urologists to call and schedule an appointment with. Please schedule an appointment in the next 3 days. YOU MUST SCHEDULE AN APPOINTMENT AT THE [facility] TO GET YOUR HIGH BLOOD PRESSURE UNDER CONTROL. IF YOU DO NOT CONTROL YOUR BLOOD PRESSURE YOU CAN BECOME VERY SICK VERY FAST Come back to the ER immediately if you get a fever, have severe pain, or have any other new or worsening concerns. Thank you for coming to the [facility] ER. We hope you feel better soon! Print Language: [place] - Post Discharge Activity Work/Back to School Note: Back to Work
[2019-08-27] MEDS ORDERED: IBUPROFEN 600 MG TABLET (FP) PO ONE ×2 (06:05→06:18)
[2019-08-27 06:16] VITALS: BP 161/109; PULSE 68; TEMP 97.9; BMI 35.5
[2019-08-27 06:19] LABS: EPI CELLS 0.4 /HPF (0-5/HPF); HYALINE CASTS 0 /lpf (0-8); PH,URINE 6.5 (5.0-8.0); URINE APPEARANCE CLEAR; URINE BACTERIA 1.2 /hpf (NEGATIVE); URINE BILIRUBIN NEGATIVE (NEGATIVE); URINE COLOR YELLOW; URINE GLUCOSE (UA) NEGATIVE (NEGATIVE); URINE KETONE NEGATIVE (NEGATIVE); URINE LEUK ESTERASE NEGATIVE (NEGATIVE); URINE NITRITE NEGATIVE (NEGATIVE); URINE PROTEIN NEGATIVE (NEGATIVE); URINE RBC 214 /hpf (0-4); URINE WBC 1 /hpf (0-5)
--- NOTE | 2019-08-27 06:31 | PDOC ---
Attending Attestation - Resident Resident Name: Albaro Rocha - ED Attending Attestation I have performed the following: I have examined & evaluated the patient, The case was reviewed & discussed with the resident, I agree w/resident's findings & plan, Exceptions are as noted - HPI HPI: 09/09/19 20:34 See resident HPI - Physicial Exam PE: 09/09/19 20:34 Agree with documented exam - Medical Decision Making 09/09/19 20:34 29M hx of kidney stones states he observed the stone passing but he still has pain distally, endorses hematuria but no clots f/u ua +blood, no infection Pt urinating freely, no clots, hemodynamically stable with hypertension, tolerating po w/o issue, pain improved dc f/u urology
== END 2019-08-27 06:52 | disposition home or self-care (01) ==
LOC: JER 05:44
DX: R30.0 Dysuria (principal); I10 Essential (primary) hypertension; N20.0 Calculus of kidney
CPT/HCPCS: 81003; 87086; 99282-25

== ENCOUNTER 2019-08-29 19:00 | Emergency (ER) | payer OTHER ==
[2019-08-29 19:12] VITALS: PULSE 80; TEMP 98.4; BMI 35.5
[2019-08-29] MEDS ORDERED: LOSARTAN POTASSIUM 50 MG TABLET (FP) PO ONE (19:33)
[2019-08-29] MEDS ORDERED: ACETAMINOPHEN 500 MG TABLET (FP) PO ONE (19:33)
[2019-08-29] MEDS ORDERED: ACETAMINOPHEN 500 MG TABLET (FP) ONE (19:34)
--- NOTE | 2019-08-29 19:59 | PDOC ---
Documentation entered by Sena Villasenor SCRIBE, acting as scribe for Minerva Shelley MD. Minerva Shelley MD: This documentation has been prepared by the fariba, Sena Villasenor SCRIBE, under my direction and personally reviewed by me in its entirety. I confirm that the documentation accurately reflects all work, treatment, procedures, and medical decision making performed by me. History of Present Illness - General Chief Complaint: Blood Pressure Problem Stated Complaint: HIGH BLOOD PRESURE Time Seen by Provider: 08/29/19 19:07 History Source: Patient Exam Limitations: No Limitations - History of Present Illness Initial Comments: 08/29/19 20:23 Patient is a 29 year old male with a significant past medical history of HTN and kidney stones who presents to the ED for evaluation of high blood pressure. Patient states he was worried about his high blood pressure due to recently having a kidney stone. He also reports having associated chest tightness. He reports having gained a lot of weight over the past year and has not been able to keep his blood pressure under control. PAST MEDICAL HISTORY: HTN, Kidney stones. PAST SURGICAL HISTORY: no significant history FAMILY HISTORY: no pertinent history SOCIAL HISTORY: Pt lives with family and is employed. MEDICATIONS: reviewed ALLERGIES: As per nursing notes General: No fevers or chills, no weakness, no weight loss HEENT: No change in vision. No sore throat,. No ear pain CardioVascular: No chest pain or shortness of breath Respiratory:No cough, or wheezing. Gastrointestinal: no nausea, vomiting, diarrhea or constipation, No rectal bleeding Genitourinary: No dysuria, hematuria, or frequency Musculoskeletal: +chest tightness. No joint or muscle pain or swelling Neurologic: No headache, vertigo, dizziness or loss of consciousness Psychiatric: nor depression Skin: No rashes or easy bruising Endocrine: no increased thirst or abnormal weight change Allergic: no skin or latex allergy All other systems reviewed and normal General: Well-nourished well-developed individual, no acute distress HEENT: Throat: Normal, tonsils normal, no erythema or exudate Neck: Supple, no meningeal signs, no lymphadenopathy Eyes::Pupils equal reactive and round, extraocular motion intact Chest: Nontender to palpation Cardiac: S1-S2 normal, regular rate and rhythm, no murmurs rubs or gallops Respiratory: Lungs clear to auscultation bilateral Abdomen: Soft, nondistended, normal bowel sounds, nontender to palpation diffusely Extremities: Warm, dry, no cyanosis, clubbing, or edema Skin: No rashes Neuro: Alert and oriented x3, nonfocal exam, grossly intact, normal gait Psych: Normal mood and affect 08/29/19 20:30 Assessment and plan: This is a 29-year-old male who comes in complaining of some discomfort in his chest hypertension and a headache. Patient has hypertension times approximately 1 year since he gained some weight. Patient is not on any medication. Here in the emergency room his blood pressure was approximately 150 systolic. Patient was given some Tylenol for his headache a cardiogram was done that showed normal sinus rhythm with occasional PAC otherwise no acute ST-T wave changes and essentially normal EKG. Patient was started on losartan prescription was sent to his pharmacy was given a first dose here and patient does have a primary care doctor that he said he will follow-up with. Past History - Past Medical History Allergies/Adverse Reactions: Allergies Allergy/AdvReac Type Severity Reaction Status Date / Time No Known Allergies Allergy Verified 08/27/19 06:02 Home Medications: Ambulatory Orders Losartan Potassium 50 mg PO DAILY #30 tablet 08/29/19 COPD: No HTN: Yes Kidney Stones: Yes - Immunization History Immunization Up to Date: Yes - Psycho Social/Smoking Cessation Hx Smoking Status: No Smoking History: Never smoked Have you smoked in the past 12 months: No Number of Cigarettes Smoked Daily: 3 If you are a former smoker, when did you quit?: 2017 'Breaking Loose' booklet given: 05/04/17 Hx Alcohol Use: No Drug/Substance Use Hx: No Substance Use Type: None *Physical Exam - Vital Signs Last Vital Signs Temp Pulse Resp BP Pulse Ox 98.4 F 80 16 150/86 96 08/29/19 19:01 08/29/19 19:01 08/29/19 19:01 08/29/19 19:08/29/19 19:01 ED Treatment Course - Medications Given in the ED: ED Medications Discontinued Medications Generic Name Dose Route Start Last Admin Trade Name Freq PRN Reason Stop Dose Admin Acetaminophen 1,000 mg 08/29/19 19:33 08/29/19 19:35 Tylenol - PO 08/29/19 19:34 1,000 mg ONCE ONE Administration Losartan Potassium 50 mg 08/29/19 19:33 08/29/19 19:41 Cozaar - PO 08/29/19 19:34 50 mg ONCE ONE Administration Discharge - Discharge Information Problems reviewed: Yes Clinical Impression/Diagnosis: Essential hypertension Condition: Good Disposition: HOME - Admission No - Additional Discharge Information Prescriptions: Losartan Potassium 50 mg PO DAILY #30 tablet - Follow up/Referral - Patient Discharge Instructions Additional Instructions: Take losartan 1 tablet a day for your hypertension Tylenol or Motrin as needed for headache. Your cardiogram was not concerning for any acute problems it did have an occasional premature beat which is very common and not a concern. However it is important that you call your primary care doctor and follow-up with your primary care doctor. Return to the emergency department immediately with ANY new, persistent or worsening symptoms. Continue any medications as previously prescribed by your physician. You should follow up with your primary doctor as soon as possible regarding today's emergency department visit. . Please make sure your doctor reviews the results of your emergency evaluation. Thank you for coming to the Emergency Department today for your care. It was a pleasure to see you today. Please note that your evaluation is INCOMPLETE until you follow-up with your doctor. - Post Discharge Activity
[2019-08-29 20:03] VITALS: BP 155/105
--- NOTE | 2019-08-30 14:17 | EKG ---
Test Reason : Blood Pressure : / mmHG Vent. Rate : 062 BPM Atrial Rate : 062 BPM P-R Int : 138 ms QRS Dur : 104 ms QT Int : 392 ms P-R-T Axes : 033 058 060 degrees QTc Int : 397 ms SINUS RHYTHM WITH WITH MARKED SINUS ARRHYTHMIA WHEN COMPARED WITH ECG OF 16-APR-2013 01:28, NO SIGNIFICANT CHANGE WAS FOUND Confirmed by Dominga Mishra ([id number]) on 08/30/2019 2:16:42 PM Referred By: LEXI RENTERIA Confirmed By:Dominga Mishra
== END 2019-08-29 20:06 | disposition home or self-care (01) ==
LOC: FER 19:00
DX: I10 Essential (primary) hypertension (principal); N20.0 Calculus of kidney
CPT/HCPCS: 93005; 99282-25

== ENCOUNTER 2022-01-17 22:33 | Emergency (ER) | payer OTHER ==
[2022-01-17 22:40] VITALS: BMI 35.5
[2022-01-17] MEDS ORDERED: SODIUM CHLORIDE 1,000 ML IV ONE (22:56)
[2022-01-17] MEDS ORDERED: KETOROLAC TROMETHAMINE 30 MG/1 ML VIAL IVPUSH ONE (22:56)
[2022-01-17 22:59] VITALS: BP 144/70; PULSE 54; TEMP 98.9
[2022-01-17] MEDS ORDERED: KETOROLAC TROMETHAMINE 30 MG/1 ML VIAL ONE (22:59)
[2022-01-17 23:07] LABS: HEMATOCRIT 43.8 % (35.4-49); HEMOGLOBIN 15.6 G/dL (11.7-16.9); MCHC 35.5 g/dl (32.0-35.9); MEAN CELL VOLUME 87.1 fl (80-96); MEAN PLT VOLUME 7.2 fl (7.5-11.1); PLATELET COUNT 281.2 10^3/uL (134-434); RBC 5.03 10^6/uL (4.00-5.60); RDW 14.4 % (11.9-15.9); WHITE BLOOD COUNT 9.6 10^3/uL (4.0-10.8)
[2022-01-17 23:14] LABS: PLATELET ESTIMATE ADEQUATE
[2022-01-17 23:28] LABS: ALBUMIN 4.7 g/dl (3.4-5.0); BILIRUBIN,TOTAL 0.8 mg/dl (0.2-1); CALCIUM 9.8 mg/dl (8.5-10); CREATININE 0.8 mg/dl (0.55-1.3); TOT PROT 7.6 g/dl (6.4-8.2)
[2022-01-17] MEDS ORDERED: ONDANSETRON 4 MG/2 ML VIAL IVPUSH ONE (23:32)
[2022-01-17] MEDS ORDERED: ONDANSETRON 4 MG/2 ML VIAL ONE (23:35)
== END 2022-01-18 00:51 | disposition home or self-care (01) ==
LOC: FER 22:33
PROC: 3E033GC Introduction of Other Therapeutic Substance into Peripheral Vein, Percutaneous Approach (ICD-10-PCS; principal; 2022-01-17)
DX: N20.0 Calculus of kidney (principal)
CPT/HCPCS: 36415; 74176-TC; 80053; 81003; 81015; 85025; 99285-25

== ENCOUNTER 2023-01-20 16:25 | Emergency (ER) | payer OTHER ==
[2023-01-20 16:41] VITALS: BP 145/97; PULSE 93; RESP 20; TEMP 98.3; BMI 28.2
== END 2023-01-20 18:11 | disposition home or self-care (01) ==
LOC: FER 16:25
DX: R07.89 Other chest pain (principal); K80.51 Calculus of bile duct without cholangitis or cholecystitis with obstruction
CPT/HCPCS: 76705-TC; 93005; 99284-25

== ENCOUNTER 2023-04-09 19:23 | Emergency (ER) | payer OTHER ==
[2023-04-09 19:33] VITALS: BP 146/98; PULSE 74; RESP 16; TEMP 98.7; BMI 28.2
[2023-04-09] MEDS ORDERED: AMOX TR/POT CLAV 500MG/125MG TABLETS (FP) PO ONE (20:27)
== END 2023-04-09 20:36 | disposition home or self-care (01) ==
LOC: FER 19:23
DX: H92.02 Otalgia, left ear (principal); H66.92 Otitis media, unspecified, left ear
CPT/HCPCS: 99283-25

== ENCOUNTER 2023-06-29 15:32 | Emergency (ER) | payer OTHER ==
[2023-06-29 15:41] VITALS: BP 135/76; PULSE 82; RESP 18; TEMP 98.3
[2023-06-29 16:13] LABS: URINE AMORPHOUS SEDIMENT SMALL
[2023-06-29 16:14] LABS: EPITHELIAL CELLS 0-5 /hpf
[2023-06-29] MEDS ORDERED: CEPHALEXIN MONOHYDRATE 500 MG CAPSULE (UD) PO ONE (18:02)
[2023-06-29] MEDS ORDERED: CEPHALEXIN MONOHYDRATE 500 MG CAPSULE (UD) ONE (18:04)
== END 2023-06-29 18:08 | disposition home or self-care (01) ==
LOC: FER 15:32
DX: R30.0 Dysuria (principal); N30.01 Acute cystitis with hematuria; N20.0 Calculus of kidney
CPT/HCPCS: 74176-TC; 81003; 81015; 99284-25